=== PATIENT | female | born 1965 | race Caucasian/White ===

== ENCOUNTER 2020-01-25 17:43 | Emergency (ER) | payer OTHER, SELFPAY ==
--- NOTE | ~2020-01-25 | XR_ITS ---
EXAMINATION: XR abdomen/kub 1V INDICATION: Low back pain and hematuria TECHNIQUE: Supine view of the abdomen is obtained. COMPARISON: None FINDINGS: No suspected urinary tract calculi are identified. Punctate left upper quadrant calcificati ons are consistent with old granulomatous disease of the spleen. There is mild lumbar spondylosis. IMPRESSION: 1. No radiographic correlate for the patient's symptoms. Reviewed, dictated and finalized at location A.
--- NOTE | 2020-01-25 17:48 | ED.GENADULT ---
HPI - General Adult General Chief complaint: Urogenital-Female Stated complaint: kidney infection Time Seen by Provider: 01/25/20 17:56 Source: patient and RN notes reviewed Mode of arrival: ambulatory Limitations: no limitations History of Present Illness HPI narrative: 54-year-old female presents with concern for bilateral flank pain, nausea, urine frequency. Denies dysuria, urgency, fever. Denies abdominal pain, weakness in any extremity, loss of bowel or bladder function, perianal anesthesia. Reports pain is not exacerbated with bending or twisting. Reports some pain relief with lying flat. MD complaint: Flank pain Severity scale (1-10): 9 Related Data Allergies Allergy/AdvReac Type Severity Reaction Status Date / Time No Known Allergies Allergy Unknown Verified 05/18/19 15:20 Review of Systems Review of Systems: Narrative: CONSTITUTIONAL: Denies malaise, chills, sweats, or fever. CARDIOVASCULAR: Denies chest pain, palpitations, or edema. RESPIRATORY: Denies cough or dyspnea. GASTROINTESTINAL: Denies abdominal pain, vomiting, diarrhea. Reports nausea GENITOURINARY: Denies dysuria or hematuria. Reports flank pain, urine frequency MUSCULOSKELETAL: Reports flank pain denies myalgia. NEUROLOGIC: Denies numbness, weakness All systems reviewed & are unremarkable except as noted in HPI and below PMFSH Social History Social History (Updated 05/27/19 @ 17:19 by Patt Goodson) Smoking packs per day: 1 Smoking cigarettes per day: 20.0 Smoking status: Current every day smoker Tobacco type: cigarettes Second hand tobacco smoke exposure: Yes Alcohol intake: never Substance use: never Substance use type: does not use Gender identity (if verbalized by the patient): Female Comments At time of signature, agree with nursing past medical, surgical, social and family history. There is no relevant family history pertinent to the presenting complaint Exam Narrative: Exam Narrative: GENERAL: Well-appearing, well-nourished, and in no acute distress. HEAD: Normocephalic. EYES: PERRLA, conjunctivae clear. NECK: Supple. No lymphadenopathy CHEST: Clear to auscultation. No respiratory distress. HEART: Regular rate and rhythm. No murmur heard. Normal peripheral pulses. ABDOMEN: Soft, nontender upon palpation, nondistended, normal active bowel sounds, no palpable or pulsatile masses, no guarding. No CVA tenderness MUSCULOSKELETAL: Normal range of motion and strength in all extremities; 5/5 strength with hip flexion and extension, dorsiflexion and extension, knee flexion and extension, plantar flexion and extension. Normal sensation in dermatomal distributions with sensitivity to light touch and pain. No midline back tenderness to palpation. No paraspinal tenderness. Transfers from lying to sitting to standing. SKIN: Warm, dry, no rash. NEURO: Alert and oriented x3. PSYCH: Normal mood and affect Course Course Emergency Course: Discussed with patient possibility of transfer to emergency department for further evaluation and confirmation of nephrolithiasis. Patient reports that she will not go to the emergency room due to scare of coronavirus exposure. Discussed with patient treatment of potential nephrolithiasis and follow-up tomorrow with her primary care provider patient agrees to this plan and understands that she should go to the emergency room if her symptoms worsen or do not improve. Patient is aware of diagnosis, understands and agrees to treatment plan. Anticipatory guidance given. Patient agrees to follow-up as directed and is aware of reasons to seek care at the emergency department. Portions of this record may have been created with voice recognition software Vital Signs Vital signs: Vital Signs Temperature 99.4 F 01/25/20 17:53 Pulse Rate 90 01/25/20 17:53 Respiratory Rate 16 01/25/20 17:53 Blood Pressure 179/88 H 01/25/20 17:53 Pulse Oximetry 98 01/25/20 17:53 Temperature 99.4 F 01/25/20 1
[2020-01-25 17:53] VITALS: BP 179/88; PULSE 90; RESP 16; TEMP 37.4; O2SAT 98
== END 2020-01-25 18:37 | disposition home or self-care (01) ==
PROVIDERS: Emergency Provider Nurse Practitioner; PCP Family Medicine
DX: R10.9 Unspecified abdominal pain (principal); F17.210 Nicotine dependence, cigarettes, uncomplicated
CPT/HCPCS: 74018; 81003; 99213; G0463

== ENCOUNTER 2023-03-20 11:40 | Emergency (ER) | payer BC, SELFPAY ==
[2023-03-20 11:57] VITALS: BP 177/90; PULSE 88; RESP 16; TEMP 37.2; O2SAT 99
--- NOTE | 2023-03-20 12:56 | ED.GENADULT ---
HPI - General Adult General Chief complaint: Wound/Laceration Stated complaint: Left Side Face/Ear Pain Time Seen by Provider: 03/20/23 12:56 Source: patient, RN notes reviewed and old records reviewed Mode of arrival: ambulatory Limitations: no limitations History of Present Illness HPI narrative: 57-year-old female presents to the [facility] with complaints redness, inflammation and pain to the left outer ear, pre-auricular area states that she has been itching at it, states that she noticed the change on Sunday, 3 days ago. Has been applying warm compresses. Related Data Allergies Allergy/AdvReac Type Severity Reaction Status Date / Time No Known Allergies Allergy Unknown Verified 03/20/23 12:28 Review of Systems Review of Systems: All systems reviewed & are unremarkable except as noted in HPI and below Constitutional: Constitutional: Reports no additional constitutional complaints Eyes: Eyes: Reports no additional eye complaints ENT: Reports as per HPI Cardiovascular: Cardiovascular: Reports no additional cardiovascular complaints, Denies chest pain and Denies dyspnea Respiratory: Respiratory: Reports no additional respiratory complaints, Denies chest congestion, Denies cough and Denies dyspnea Gastrointestinal: Gastrointestinal: Reports no additional gastrointestinal complaints, Denies abdominal pain, Denies nausea and Denies vomiting Musculoskeletal: Musculoskeletal: Reports no additional musculoskeletal complaints Integumentary/Breasts: Skin/Breast: Reports as per HPI Neurologic: Reports system reviewed and no additional complaints, except as documented Psychiatric: Psychiatric: Reports no additional psychiatric complaints Allergic/Immunologic: Allergic/Immunologic: Reports no additional allergic/immunologic complaints [facility] Social History Social History Smoking packs per day: 1 Smoking cigarettes per day: 20.0 Years smoked: 30 Smoking pack-years: 30.00 Smoking status: Current every day smoker Tobacco type: cigarettes Second hand tobacco smoke exposure: Yes Alcohol intake: never Substance use: never Substance use type: does not use Living arrangements: with family Occupation/Education: occupation Gender identity (if verbalized by the patient): Female Sexual Orientation (if Verbalized by the Patient): Straight or Heterosexual Comments At the time of my signature, I reviewed and agree with the nursing past medical, surgical, social, and family history. There is no relevant family history pertinent to the patient complaint. Exam Const: General: cooperative, healthy appearing, no acute distress, well developed, alert, uncomfortable and well nourished Nutritional Appearance: well nourished Orientation/consciousness: patient oriented x3 Limitations: no limitations HENMT: Head: normal to inspection Ears: hearing grossly normal bilaterally and external ears normal Outer ear/TM images: 1. 3 x 3 cm erythema area pre-auricular. 1 cm x 1 cm fluctuant center. Warm to touch. Does not extend into the ear canal. Face/Nose/Sinus: Normal external nose present, Normal nares present, Normal nasal mucous membranes and turbinates present, normal facial exam and face symmetric Face and sinus: normal facial exam and face symmetric Mouth: Yes Normal oral and palatal mucosa present, Yes lip normal, Yes tongue normal and Yes moist mucous membranes Throat: posterior oropharynx normal and uvula midline Eyes: General: appearance normal, both eyes and all related structures Alignment and Position: alignment normal Periorbital: periorbital findings normal Pupils: Equal, round and reactive pupils present EOM: EOMs intact bilaterally Neck: Neck: normal visual inspection, full ROM, no lymphadenopathy and no meningeal signs Chest: Chest palpation & inspection: normal inspection of the chest Resp: Effort & Inspection: normal respiratory e
== END 2023-03-20 13:27 | disposition home or self-care (01) ==
PROVIDERS: Emergency Provider Nurse Practitioner; PCP Family Medicine
DX: L02.01 Cutaneous abscess of face (principal); L03.211 Cellulitis of face; F17.210 Nicotine dependence, cigarettes, uncomplicated
CPT/HCPCS: 87070; 87075; 87147; 87186; 87205; 99213; G0463

== ENCOUNTER 2023-04-16 13:34 | Outpatient (CLI) | payer BC, SELFPAY ==
--- NOTE | ~2023-04-16 | MR_ITS ---
EXAMINATION: MR ankle LT wo con DATE: 04/16/2023 14:49 INDICATION: Dorsal medial left ankle pain. Stress fracture. TECHNIQUE: Magnetic resonance imaging (MRI) of the left ankle was performed without intravenous contr ast. Sequences included sagittal, coronal, and axial proton-density weighted fast spin echo without a nd with fat saturation. COMPARISON: None. FINDINGS: Medial ankle ligaments: There is heterotopic ossification along the deep deltoid ligament consistent with sequela of chronic sprain. There is thickening and increased signal of the anterior superficial deltoid ligament with so me surrounding soft tissue edema consistent with additional age-indeterminate sprain/partial tear. Th e spring ligament complex appears to remain intact. Lateral ankle ligaments: The anterior and posterior inferior tibiofibular ligaments are normal. The anterior talofibular, calc aneofibular and posterior talofibular ligaments are normal. Tendons: Mild distal Achilles tendinosis without tear and tiny enthesopathic ossicle at the distalmost tendon. The peroneus longus and brevis tendons are normal. The tibialis anterior and extensor hallucis longu s and extensor digitorum longus tendons are normal. The tibialis posterior, flexor digitorum longus a nd flexor hallucis longus tendons are normal. Plantar fascia: Moderate-sized plantar calcaneal spur with mild tendinopathy/enthesopathy of the proximal central com ponent of the plantar aponeurosis. No associated marrow edema or surrounding soft tissue edema to sug gest acute plantar fasciitis. Bones/other: Nonspecific marrow edema without evident fracture line at the navicula, anterior process of the calca neus and anterior talus. Osteoarthritis with moderate medial side predominant nonuniform joint space narrowing at the talonavicular joint. The marrow edema in the anterior talus and calcaneus appears ce ntered about both sides of the middle facet of the subtalar joint where there is only mild osteoarthr itis. Additional mild osteoarthritis at a few of the tarsal metatarsal joints. No fracture or patholo gic marrow replacing process. There is also thickening of the capsule along the dorsal margin of the talonavicular ligament consistent with additional age-indeterminate partial tear. Fluid: Physiologic amount fluid within the joint space. There is more heterogeneous increased signal likely tenosynovitis along the dorsal and medial margin of the talonavicular joint. IMPRESSION: 1. Joint centered marrow edema at the talonavicular and medial articulation of the subtalar joint lik jomar related to osteoarthritis. No fracture identified. 2. Heterotopic obscuration of the deep deltoid ligament consistent with chronic sprain with thickenin g and increased signal and mild associated edema at the anterior superficial deltoid ligament and cristina ng the capsule at the dorsal talonavicular joint consistent with additional age-indeterminate sprains /partial tears. 3. 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 Reviewed, dictated and finalized at location A. IMPRESSION: 1. Joint centered marrow edema at the talonavicular and medial articulation of the subtalar joint likely related to osteoarthritis. No fracture identified. 2. Heterotopic obscuration of the deep deltoid ligament consistent with chronic sprain with thickening and increased signal and mild associated edema at the a nterior superficial deltoid ligament and along the capsule at the dorsal talona vicular joint consistent with additional age-indeterminate sprains/partial tear s. 3. 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
== END 2023-04-16 13:35 | disposition home or self-care (01) ==
PROVIDERS: PCP Family Medicine; Visit Provider Orthopaedic Surgery
DX: M84.30XA Stress fracture, unspecified site, initial encounter for fracture (principal); M77.32 Calcaneal spur, left foot; R60.9 Edema, unspecified
CPT/HCPCS: 73721

== ENCOUNTER 2023-08-01 10:20 | Emergency (ER) | payer OTHER, BC, SELFPAY ==
[2023-08-01 10:52] VITALS: BP 174/86; PULSE 87; RESP 16; TEMP 36.4; O2SAT 98
--- NOTE | 2023-08-01 11:13 | ED.GENADULT ---
HPI - General Adult General Chief complaint: Extremity Injury, Upper Stated complaint: left shoulder pain Source: patient, RN notes reviewed and old records reviewed Mode of arrival: ambulatory Limitations: no limitations History of Present Illness HPI narrative: 58-year-old female presents to [facility] with complaints of left shoulder pain this started this a.m. after patient twisted wrong. Patient denies actual injury, pt states twisted arm certain when started having pain. Patient has not taken anything for pain. MD complaint: shoulder pain Onset (ago): hour(s) (5-6) Location: upper extremity Radiation: non-radiation Severity: moderate Quality: sharp Pain Consistency: constant Relieving factors: none Exacerbating factors: movement Treatments prior to arrival: none Related Data Allergies Allergy/AdvReac Type Severity Reaction Status Date / Time No Known Allergies Allergy Unknown Verified 08/01/23 10:56 Review of Systems Constitutional: Constitutional: Reports no additional constitutional complaints, Denies body ache(s), Denies chills, Denies fatigue, Denies fever(s) and Denies headache(s) Eyes: Eyes: Reports no additional eye complaints and Denies blurry vision ENT: Reports system reviewed and no additional complaints, except as documented, Denies vertigo, Denies dizziness, Denies ear discharge, Denies otalgia, Denies facial pain, Denies headache(s), Denies nasal congestion, Denies nasal discharge, Denies sinus pain, Denies sinus pressure and Denies sore throat Cardiovascular: Cardiovascular: Reports no additional cardiovascular complaints, Denies chest pain, Denies chest pain at rest, Denies rapid heart rate and Denies dyspnea Respiratory: Respiratory: Reports no additional respiratory complaints, Denies chest congestion, Denies cough, Denies pain on inspiration, Denies pain with cough and Denies dyspnea Gastrointestinal: Gastrointestinal: Denies abdominal pain, Denies diarrhea, Denies nausea and Denies vomiting Musculoskeletal: Musculoskeletal: Reports arthralgias Comments: Left shoulder and upper arm pain Integumentary/Breasts: Skin/Breast: Denies rash Neurologic: Reports system reviewed and no additional complaints, except as documented, Denies vertigo, Denies dizziness and Denies headache(s) Endocrine: Endocrine: Denies fatigue PMFSH Past Medical History Medical History Arthritis of ankle or foot, degenerative HTN (hypertension) Pseudogout of ankle Stress fracture, left ankle, initial encounter for fracture Social History Social History Smoking packs per day: 1 Smoking cigarettes per day: 20.0 Years smoked: 30 Smoking pack-years: 30.00 Smoking status: Current every day smoker Tobacco type: cigarettes Second hand tobacco smoke exposure: Yes Alcohol intake: never Substance use: never Substance use type: does not use Living arrangements: with family Occupation/Education: occupation 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[employer] Gender identity (if verbalized by the patient): Female Sexual Orientation (if Verbalized by the Patient): Straight or Heterosexual Comments At the time of my signature, I reviewed and agree with the nursing past medical, surgical, social, and family history. There is no relevant family history pertinent to the patient complaint. Exam Const: General: cooperative, healthy appearing, no acute distress and well nourished Nutritional Appearance: well nourished Orientation/consciousness: patient oriented x3 Limitations: no limitations HENMT: Head: normal to inspection and normocephalic Ears: external ears normal and mastoids normal Face/Nose/Sinus: normal facial exam Face and sinus: normal facial exam Mouth: Yes Normal oral and palatal mucosa present, Yes oropharynx normal and Yes moist mucous membranes Throat:
== END 2023-08-01 11:23 | disposition home or self-care (01) ==
PROVIDERS: Emergency Provider Registered Nurse; PCP Family Medicine
DX: S46.912A Strain of unspecified muscle, fascia and tendon at shoulder and upper arm level, left arm, initial encounter (principal); X50.9XXA Other and unspecified overexertion or strenuous movements or postures, initial encounter; I10 Essential (primary) hypertension
CPT/HCPCS: 99213; G0463

== ENCOUNTER 2023-10-24 14:43 | Outpatient (CLI) | payer BC, SELFPAY ==
--- NOTE | ~2023-10-24 | XR_ITS ---
XR knee LT 3V 10/24/2023 14:58 Indication: Left knee pain Procedure: 3 views left knee Comparison: 12/28/2016 Findings: Mild osteoarthritis of the left knee. No fracture or traumatic malalignment. Small knee eff usion. No foreign bodies. Impression: 1: Mild osteoarthritis of the left knee. Reviewed, dictated and finalized at location B. Impression: 1: Mild osteoarthritis of the left knee.
== END 2023-10-24 14:44 ==
PROVIDERS: PCP Physician Assistant Medical; Visit Provider Physician Assistant Medical
DX: M25.462 Effusion, left knee (principal); M17.12 Unilateral primary osteoarthritis, left knee
CPT/HCPCS: 73562

== ENCOUNTER 2023-12-20 13:41 | Outpatient (CLI) | payer BC, SELFPAY ==
--- NOTE | ~2023-12-20 | MR_ITS ---
EXAMINATION: MR knee LT wo con DATE: 12/20/2023 14:07 INDICATION: Left knee pain TECHNIQUE: Magnetic resonance imaging (MRI) of the left knee was performed without intravenous contra st. Sequences included coronal PD-weighted FSE, coronal PD-weighted FS FSE, sagittal T2-weighted FSE , sagittal PD-weighted FS FSE and axial PD weighted fat saturated FSE. COMPARISON: None. FINDINGS: Medial compartment: Medial meniscus is normal. Articular cartilage is normal. Lateral compartment: Complex tear at the body and anterior horn of the lateral meniscus. There is cephalad displacement of a small meniscal flap at the junction of the body and anterior horn. Small partial-thickness chondra l fissure at the medial side of the lateral tibial plateau. Patellofemoral compartment: Deep chondral fissure extending transversely across the central aspect of the lateral patellar facet. Partial-thickness chondral ulceration at the central aspect of the patellar apical ridge and medial facet. Deep chondral ulceration with mild underlying cortical irregularity seen across the inferior a spect of the medial and lateral trochlea and intervening trochlear groove with mild subarticular olegario a-like signal change at the inferior aspect of the medial trochlea. Ligaments and tendons: Anterior and posterior cruciate ligaments are normal. The medial collateral ligament and fibular neymar ateral ligament complex are normal. Small enthesophyte at the tibial insertion of the otherwise alex l patellar tendon. Minimal distal quadriceps tendinosis. The visualized medial and lateral hamstring tendons as well as the iliotibial band are normal. Fluid: Moderate-sized left knee joint effusion. Suprapatellar plical band and mild scattered synovitis. Wm tional synovitis within a moderate-sized Banegas's cyst. No loose osteochondral bodies identified. Osseous/other: Bone alignment is normal. No fracture or pathologic marrow replacing process. IMPRESSION: 1. Complex lateral meniscal tear 2. Mild patellofemoral osteoarthritis with extensive moderate and high-grade chondromalacia and mild osteoporosis and lateral compartments small region of moderate grade chondromalacia. 2. Moderate-sized left knee joint effusion with moderate-sized Banegas's cyst. Reviewed, dictated and finalized at location A. IMPRESSION: 1. Complex lateral meniscal tear 2. Mild patellofemoral osteoarthritis with extensive moderate and high-grade ch ondromalacia and mild osteoporosis and lateral compartments small region of mod erate grade chondromalacia. 2. Moderate-sized left knee joint effusion with moderate-sized Banegas's cyst.
== END 2023-12-20 13:42 ==
LOC: MICIMG 13:42
PROVIDERS: PCP Family Medicine; Visit Provider Nurse Practitioner Family
DX: S83.272A Complex tear of lateral meniscus, current injury, left knee, initial encounter (principal); M17.12 Unilateral primary osteoarthritis, left knee; M25.462 Effusion, left knee; M71.22 Synovial cyst of popliteal space [Baker], left knee; M94.262 Chondromalacia, left knee; M81.0 Age-related osteoporosis without current pathological fracture; X58.XXXA Exposure to other specified factors, initial encounter
CPT/HCPCS: 73721

== ENCOUNTER 2023-12-20 15:22 | Outpatient (CLI) | payer BC, SELFPAY ==
[2023-12-20 16:40] LABS: Basophils Percent Auto 0.4 % (0.2-1.2); Eosinophils Absolute Auto 0.4 K/mm3 (0-0.3); Eosinophils Percent Auto 3.8 % (0-4.4); Hematocrit 43.4 % (37.0-47.0); Hemoglobin 14.1 g/dL (12.0-15.0); Immature Granulocyte Absolute 0.03 K/mm3 (0.00-0.031); Immature Granulocyte Percent A 0.3 % (0-0.5); Lymphocytes Absolute Auto 2.38 K/mm3 (0.9-3.2); Mean Corpuscular HGB Conc 32.5 g/dl (32-36); Mean Corpuscular Hemoglobin 31.3 pg (26-34); Mean Corpuscular Volume 96.2 fl (80-100); Mean Platelet Volume 9.3 fl (7.4-10.4); Monocytes Absolute Auto 0.8 K/mm3 (0.1-0.6); Monocytes Percent Auto 7.6 % (2.6-8.5); Neutrophils Absolute Auto 6.4 K/mm3 (1.3-6.7); Neutrophils Percent Auto 63.9 % (45.5-73.1); Platelet Count Result 227 k/mm3 (150-375); Red Blood Count 4.51 M/mm3 (4.2-5.4); Red Cell Distribution Width 13.2 % (11.5-14.5); White Blood Count 9.9 K/mm3 (4.5-10.0)
[2023-12-20 17:05] LABS: Alanine Aminotransferase 26 U/L (6-35); Albumin Level 4.4 g/dL (3.5-5.1); Alkaline Phosphatase 90 U/L (38-126); Anion Gap 9 mmol/L (4-12); Aspartate Amino Transferase 28 U/L (14-36); Bilirubin,Total 0.5 mg/dL (0.2-1.3); Blood Urea Nitrogen 19 mg/dL (7-17); CRP 1.2 mg/dL (<1.0); Calcium 8.7 mg/dL (8.4-10.2); Carbon Dioxide 26 mmol/L (22-30); Chloride 107 mmol/L (98-107); Estimated Glomerular Filt Rate > 60; Glucose 104 mg/dL (65-110); Potassium 3.9 mmol/L (3.4-5.0); Sodium 142 mmol/L (137-145)
[2023-12-20 18:03] LABS: Erythrocyte Sedimentation Rate 24 mm/hr (0-20)
[2023-12-24 11:38] LABS: ANA Pattern Nuclear, Speckled; Anti Nuclear Antibody Pattern Nuclear, Nucleolar
== END 2023-12-20 15:23 | disposition home or self-care (01) ==
PROVIDERS: PCP Family Medicine; Visit Provider Physician Assistant Medical
DX: I77.6 Arteritis, unspecified (principal); R21 Rash and other nonspecific skin eruption; R23.3 Spontaneous ecchymoses
CPT/HCPCS: 36415; 80053; 85025; 85652; 86038; 86039; 86140

== ENCOUNTER 2024-01-04 08:23 | Outpatient (CLI) | payer BC, SELFPAY ==
--- NOTE | 2024-01-04 08:31 | ECG_ITS ---
Test Date: 2024-01-04 08:45:58 Measurements Intervals [place] Rate: 64 P: 60 DE: 145 QRS: 32 QRSD: 106 T: -23 QT: 350 QTc: 362 Interpretive Statements SINUS RHYTHM WITH MARKED RHYTHM IRREGULARITY, POSSIBLE NON-CONDUCTED PAC, SA BLOCK, AV BLOCK, OR SINUS PAUSE NONSPECIFIC T-WAVE ABNORMALITY- ANTEROLATERAL LEADS BASELINE ARTIFACT- I, II, III, AVR, AVL, AVF, V1-V6 ABNORMAL ECG No previous ECG available for comparison Electronically Signed On 01-04-2024 08:54:31 CDT by Donnell Oviedo D.O.
== END 2024-01-04 08:24 | disposition home or self-care (01) ==
LOC: ANHSURGERY 08:26
PROVIDERS: PCP Family Medicine; Visit Provider Orthopaedic Surgery
DX: I10 Essential (primary) hypertension (principal); Z01.818 Encounter for other preprocedural examination; R94.31 Abnormal electrocardiogram [ECG] [EKG]
CPT/HCPCS: 93005

== ENCOUNTER 2024-01-17 01:09 | Day surgery (SDC) | payer BC, SELFPAY ==
[2024-01-02 09:31] VITALS: BMI 30.7
--- NOTE | 2024-01-02 09:32 | PC.NURSE ---
Report to the Outpatient Waiting Room, entrance under the green pavilion located off [facility], at time _0930_ on date _[id number]_. Planned Procedure Time: _1130_. Time changes happen often and if your time is changed the preop area will call you the afternoon before. - You and your visitor will be asked to self-screen and do not enter if you have any COVID symptoms. - A mask is optional within the hospital at this time. Patients may have clear liquids (water, carbonated beverages, clear teas, apple juice) until 3 hours prior to surgery with a maximum of 20 ounces. - No food from midnight until time of surgery Take the following medications with a SIP of water the morning of surgery: ___Amlodipine DO NOT STOP ANY OF YOUR OTHER PRESCRIPTION MEDICATIONS PRIOR TO SURGERY ?EXCEPT THE FOLLOWING Medications to discontinue per physician Meloxicam Date to take last ogvh___[id number] Please no make-up, nail upper sorbian, hairspray, perfume, deodorant, or body powder the day of surgery. No jewelry (including any body piercings) or valuables the day of surgery, leave them at home. Please take a shower or bath the night before, or the morning of, surgery with an antibacterial soap. Wear comfortable, loose fitting clothing. - Jewelry must be removed prior to entering the operating room. Rings and piercings that are not removed may be cut off. - The hospital will not accept responsibility for valuables. - Please leave all valuables, including medications, at home the day of surgery. If you are going home after surgery, a licensed boat driver must drive you home. - NO public transportation without another adult if you receive anesthesia. - We recommend that an adult stay with you for 24 hours following discharge. - We also recommend that you do not drive, make important decision, drink alcoholic beverages, or take any drugs that were not prescribed by your health care provider for at least 24 hours after your discharge time. Follow any additional instructions given to you from your surgeon. If you or anyone in your household have experienced Covid symptoms in the past week, please notify your surgeon or the nurse liaison at the phone number below for possible testing. Telephone instructions given to __[email or web address]____and asked if any additional questions and then verbalized understanding. Patient advised to call surgeon office or pre surgery nurse liaison [phone] if any additional questions.
--- NOTE | 2024-01-09 15:36 | P.PNAN_ITS ---
Anes - Initial Pre Proc Eval Procedure: Operation Date: 01/10/24 11:30 Proposed Procedures p Left Knee Arthroscopy, Debride Meniscus, Chondroplasty, Proceed As Indicated - Jerman Gibson MD Date/Time: 01/09/24 15:36 Surgeon: Jerman Gibson MD Pre Op Diagnosis: left knee pain,lateral meniscus tear,chondromylaci Patient Data Age: 58 Gender: F Height: 1.7 m Weight: 89 kg Allergies Allergy/AdvReac Type Severity Reaction Status Date / Time No Known Allergies Allergy Unknown Verified 01/07/24 14:17 Home Medications Medication Instructions Recorded Confirmed Type valsartan 160 mg tablet 160 mg PO DAILY #90 tabs 05/21/23 01/07/24 Rx amlodipine 5 mg tablet 5 mg PO DAILY #90 tabs 09/27/23 01/07/24 Rx meloxicam 7.5 mg tablet 7.5 mg PO DAILY #30 tabs 12/10/23 01/07/24 Rx aspirin 81 mg tablet,delayed 81 mg PO DAILY 01/02/24 01/07/24 History release Results Review: All pre-operative results and documents have been reviewed as part of the pre- operative evaluation. [facility] Past Medical History Medical History Arthritis of ankle or foot, degenerative Chondromalacia, left knee Degenerative joint disease of knee Effusion of knee joint HTN (hypertension) Lateral meniscus tear Left knee pain Pseudogout of ankle Stress fracture, left ankle, initial encounter for fracture Surgical History Surgical History (Updated 01/09/24 @ 15:37 by Keith Borden DO) History of tubal ligation Social History Social History Smoking packs per day: 1 Smoking cigarettes per day: 20.0 Years smoked: 30 Smoking pack-years: 30.00 Smoking status: Current every day smoker Tobacco type: e-cigarettes/vaping Second hand tobacco smoke exposure: Yes Alcohol intake: never Substance use: never Substance use type: does not use Do You Feel Safe in your Home?: Yes Lack of Transportation: No Lack of Food: Never True Concerned About Future Housing: No Difficulty Paying Gas/Electric Bills: No Difficulty Paying for Meds: No Currently Unemployed: No Education: High School Diploma/GED Difficulty w/ Childcare or Family Care: No Living arrangements: with family Occupation/Education: occupation 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[employer] Gender identity (if verbalized by the patient): Female Sexual Orientation (if Verbalized by the Patient): Straight or Heterosexual Spiritual care concerns: No Anes - Eval Final PreProcedure Day of Procedure 01/09/24 15:36 Results Review: All pre-operative results and documents have been reviewed as part of the pre- operative evaluation. Informed Consent: The patient's anesthetic plan and its attendant risks and benefits were discussed with the patient/family/POA. Questions were solicited and answers provided to the satisfaction of the patient/family/POA.
--- NOTE | 2024-01-10 15:34 | PC.NURSE ---
Report to the Outpatient Waiting Room, entrance under the green pavilion located off [facility], at time _1000_ on date _[id number]_. Planned Procedure Time: _1200_. Time changes happen often and if your time is changed the preop area will call you the afternoon before. - You and your visitor will be asked to self-screen and do not enter if you have any COVID symptoms. - A mask is optional within the hospital at this time. Patients may have clear liquids (water, carbonated beverages, clear teas, apple juice) until 3 hours prior to surgery with a maximum of 20 ounces. - No food from midnight until time of surgery Take the following medications with a SIP of water the morning of surgery: ___Amlodipiine DO NOT STOP ANY OF YOUR OTHER PRESCRIPTION MEDICATIONS PRIOR TO SURGERY ?EXCEPT THE FOLLOWING Medications to discontinue per physician Meloxicam Date to take last dose___Stop today. Please no make-up, nail stateless, hairspray, perfume, deodorant, or body powder the day of surgery. No jewelry (including any body piercings) or valuables the day of surgery, leave them at home. Please take a shower or bath the night before, or the morning of, surgery with an antibacterial soap. Wear comfortable, loose fitting clothing. - Jewelry must be removed prior to entering the operating room. Rings and piercings that are not removed may be cut off. - The hospital will not accept responsibility for valuables. - Please leave all valuables, including medications, at home the day of surgery. If you are going home after surgery, a licensed entry driver operator must drive you home. - NO public transportation without another adult if you receive anesthesia. - We recommend that an adult stay with you for 24 hours following discharge. - We also recommend that you do not drive, make important decision, drink alcoholic beverages, or take any drugs that were not prescribed by your health care provider for at least 24 hours after your discharge time. Follow any additional instructions given to you from your surgeon. If you or anyone in your household have experienced Covid symptoms in the past week, please notify your surgeon or the nurse liaison at the phone number below for possible testing. Telephone instructions given to __Karon___and asked if any additional questions and then verbalized understanding. Patient advised to call surgeon office or pre surgery nurse liaison [phone] if any additional questions.
[2024-01-17] VITALS (9 sets, daily range): BP systolic 105–131; BP diastolic 63–94; PULSE 70–73; RESP 12–20; TEMP 36.3–36.6; O2SAT 95–100
[2024-01-17] MEDS: ACETAMINOPHEN 500 MG TABLET 1000 MG PO (11:02)
[2024-01-17] MEDS: LACTATED RINGERS 1,000 ML 30 ML IV CONT (11:05)
[2024-01-17] MEDS: KETOROLAC 15 MG/ML VIAL (*BKC) IV PUSH (11:08)
--- NOTE | 2024-01-17 11:18 | WPDANESEPPF ---
Anes - Initial Pre Proc Eval Procedure: Operation Date: 01/17/24 12:00 Proposed Procedures p Left Knee Arthroscopy, Debride Meniscus, Chondroplasty, Proceed As Indicated - Jerman Gibson MD Date/Time: 01/17/24 11:18 Surgeon: Jerman Gibson MD Pre Op Diagnosis: left knee pain,lateral meniscus tear,chondromylaci Patient Data Age: 58 Gender: F Height: 1.7 m Weight: 89 kg Allergies Allergy/AdvReac Type Severity Reaction Status Date / Time No Known Allergies Allergy Unknown Verified 01/17/24 10:41 Home Medications Medication Instructions Recorded Confirmed Type valsartan 160 mg tablet 160 mg PO DAILY #90 tabs 05/21/23 01/17/24 Rx amlodipine 5 mg tablet 5 mg PO DAILY #90 tabs 09/27/23 01/17/24 Rx meloxicam 7.5 mg tablet 7.5 mg PO DAILY #30 tabs 12/10/23 01/17/24 Rx aspirin 81 mg tablet,delayed 81 mg PO DAILY 01/02/24 01/17/24 History release Patient hx anesthesia problems: none Family hx anesthesia problems: none Results Review: All pre-operative results and documents have been reviewed as part of the pre-operative evaluation. [facility] Past Medical History Medical History Arthritis of ankle or foot, degenerative Chondromalacia, left knee Degenerative joint disease of knee Effusion of knee joint HTN (hypertension) Lateral meniscus tear Left knee pain Pseudogout of ankle Stress fracture, left ankle, initial encounter for fracture Surgical History Surgical History (Updated 01/09/24 @ 15:37 by Keith Borden DO) History of tubal ligation Social History Social History Smoking packs per day: 1 Smoking cigarettes per day: 20.0 Years smoked: 30 Smoking pack-years: 30.00 Smoking status: Current every day smoker Tobacco type: e-cigarettes/vaping Second hand tobacco smoke exposure: Yes Alcohol intake: never Substance use: never Substance use type: does not use Do You Feel Safe in your Home?: Yes Lack of Transportation: No Lack of Food: Never True Concerned About Future Housing: No Difficulty Paying Gas/Electric Bills: No Difficulty Paying for Meds: No Currently Unemployed: No Education: High School Diploma/GED Difficulty w/ Childcare or Family Care: No Living arrangements: with family Occupation/Education: occupation 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[employer] Gender identity (if verbalized by the patient): Female Sexual Orientation (if Verbalized by the Patient): Straight or Heterosexual Spiritual care concerns: No Anes - Eval Final PreProcedure Day of Procedure 01/17/24 11:18 Patient weight: obese Heart: regular rate and rhythm Lungs: clear to auscultation Airway: Mallampati scale class II Neurological: alert and oriented Last oral intake: >/= 8 hours ASA classification: III Emergent: no Anesthetic plan: proceed Anesthesia type and monitoring: general LMA and standard monitoring Results Review: All pre-operative results and documents have been reviewed as part of the pre-operative evaluation. Informed Consent: The patient's anesthetic plan and its attendant risks and benefits were discussed with the patient/family/POA. Questions were solicited and answers provided to the satisfaction of the patient/family/POA.
--- NOTE | 2024-01-17 11:20 | WPDHPUPDATE1 ---
History and Physical Update Update Date/Time: 01/17/24 11:20 History and Physical has been reviewed, including an updated exam of the patient. There are NO changes in the patient's condition. Risks, benefits, and alternatives have been discussed and questions answered. Patient agrees to proceed with procedure.
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
[2024-01-17] MEDS: ceFAZolin 2 GM/D5W 50 ML 2 GM/50 ML BAG IVPB (12:02)
[2024-01-17] MEDS: BUPivacaine HCL 0.25% PF 10 ML VIAL INFILTRATE (12:25)
[2024-01-17] MEDS: BUPIVACAINE/EPINEPHRINE 0.5% 10 ML VIAL INFILTRATE (12:26)
--- NOTE | 2024-01-17 13:07 | W.PM.PROC2 ---
Procedure Note - Detailed Date of Procedure 01/17/24 Pre-op Diagnosis left knee pain,lateral meniscus tear,chondromylaci Post-op Diagnosis Same Procedure Performed Left knee arthroscopy with partial lateral meniscectomy and patellofemoral chondroplasty Surgeon Jerman Gibson MD Systems Integration Advisor scrub nurse Anesthesia General Indications 58-year-old woman with left knee pain and mechanical symptoms. MRI shows lateral meniscus tear and mild chondromalacia. Failed conservative treatment with injections and therapy. Presents for operative treatment. Findings Left knee large complex tear of the body of the lateral meniscus with displacement into the knee joint. grade 1 chondromalacia lateral femoral condyle. Grade 2 chondromalacia patellofemoral articulation. Hypertrophic fat pad. ACL and PCL intact. medial compartment and medial meniscus intact. Description of Procedure Informed consent given by patient. Operative extremity marked in preoperative holding area. Patient received intravenous antibiotics. Patient brought to operating room and underwent general anesthetic by anesthesia team. Positioned supine on operating room table. Left leg placed into a posterior thigh leg quiles. Foot of the table dropped to 90? and right leg padded out of the field. Time-out performed confirming patient, site of surgery and plan. Left knee prepped and draped in usual sterile surgical fashion using ChloraPrep skin solution. Standard arthroscopic portals made by using a 11 blade knife for the anterior lateral portal 1st. Capsule penetrated bluntly. Camera and inflow started. The Above operative findings noted. Intra-articular visualization used to position the anterior medial portal using 22 gauge spinal needle. A 11 blade knife used for the skin and blunt penetration of the capsule. 4.7 millimeter arthroscopic shaver introduced and partial lateral meniscectomy of the loose and torn portion performed. Edge of meniscus completed with arthroscopic Wand. Arthroscopic Wand used to perform chondroplasty of the patellofemoral articulation and the lateral femoral condyle. Shaver reintroduced and a synovectomy performed of the anterior fat pad and extensive synovium as well as medial and lateral plica. Bleeding points coagulated with Wand. Knee inspected, no loose pieces noted. 1 liter of irrigant infused and suction out. Arthroscopic cannulas removed. Skin closed with 4 nylon interrupted suture. Local anesthetic with 0.25% Marcaine. Sterile dressing applied. Patient awoken from anesthesia, extubated and taken to recovery room in stable condition. All sponge needle and instrument counts correct at the end of the case. Estimated Blood Loss 5 Tourniquet Time Total Tourniquet Time: 0 Drains No Packing No Complications None Condition Stable Disposition PACU [facility] Billing Surgery - Charge Forward: Surgery Billing ([id number])
[2024-01-17] MEDS: fentaNYL CITRATE INJ (*CRX) 100 MCG/2 ML VIAL 25 MCG IV PUSH ×4 (13:14→13:27)
[2024-01-17] MEDS: oxyCODONE HCL (*CRX) 5 MG TAB IR PO (14:09)
== END 2024-01-17 14:35 | disposition home or self-care (01) ==
PROVIDERS: PCP Family Medicine; Visit Provider Orthopaedic Surgery
PROC: (CPT 29870; principal; 2024-01-17 12:00)
DX: S83.272A Complex tear of lateral meniscus, current injury, left knee, initial encounter (principal); M94.262 Chondromalacia, left knee; M25.562 Pain in left knee; I10 Essential (primary) hypertension
CPT/HCPCS: 29881; 93005; A9270; J0690; J1100; J1885; J2250; J2371; J2405; J2704; J3010; J7120

== ENCOUNTER 2024-08-14 09:02 | Outpatient (CLI) | payer BC, SELFPAY ==
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
--- OUTSIDE RECORDS SUMMARY | 2024-08-14 09:16 | XMS_ITS | Data Portability ---
Author Organization [place] [facility], Main Office Address [address] [place] [address] Care Team Providers Care Test Engine Evaluator Name Role Phone VISHAL BANKS Primary Care Provider VISHAL BANKS Referring Provider Assessment Encounter Date Assessment Date Assessment LastModified by Organization Details LastModified Time 08/31/2022 08/31/2022 Patient has foot pain left. She is tender over the base of the 2nd has pain to palpation manipulation. Neurologically she is intact strength is good reflexes symmetric sensation normal. Based on this I recommended an x-ray again in [address] in a stiff-soled shoe and treat her as if she did have a stress fracture which I think she may have. I told her she can work as long she can walk on her heel if he gets to topple up to take her off work. Her prescription drug management will try Voltaren for pain and inflammation I told her I really do not want to give her narcotics for this. [email or web address] Not available 08/31/2022 14:50:58 09/14/2022 09/14/2022 Patient returns foot pain (the pain is getting better slowly but surely she remains tender over the dorsum of the foot particularly the base of the 2nd metatarsal. Her x-rays look normal I think at this point safe to take out the boot and get her moving slowly if he gets worse or changes she can call overall she is following a reasonable course and seems to be doing fine. [email or web address] Not available 09/14/2022 14:33:24 Plan of Treatment Reminders Order Date Submit Date Provider Last Modified By Organization Details Last Modified Time Details Appointments None recorded. Lab None recorded. Referral None recorded. Procedures None recorded. Surgeries None recorded. Imaging XR, foot, 3 or more view 2022 023 [email or web address] [facility] [place], [address], [address], 3 15:15:13 XR, foot, 3 or more view 2022 023 [email or web address] [facility] [place], [address], [address], 3 15:07:27 Medication Orders diclofenac sodium 75 mg tablet,tevin yed release 2022 023 sergo [facility]ler [facility] [place], [address], 14:48:47 Patient TargetsNo targets recorded. Patient InstructionsNo instructions recorded. Reason for Referral None Reported. Results Created Date Observation Date Name Description Value Unit Range Abnormal Flag Note LastModifiedBy Organization Detail LastModifiedTime 09/01/19 23 XR, foot, 3 or more view No observ ation record ed. [email or web address] [facility] [place] [address], [address], 08/31/2022 14:49:43 09/15/19 23 XR, foot, 3 or more view No observ ation record ed. [email or web address] [facility] [place] [address], [address], 09/14/2022 14:32:09 Result Notes None recorded. Problems Name Problem SNOMED Code Status Onset Date Resolution Date Notes Provider Name and Address Organization Details Recorded Time Stress fracture 126517700 Active Not Available [facility] 3 10:47:03 Sprain of ankle 86982232 Active Not Available [facility] 3 10:47:03 Pain in limb 95013387 Active Not Available [facility] 3 10:47:03 Closed fracture of cuboid bone of foot 1932935 Active Not Available [facility] 10:47:03 Pain in left foot 44631220987525 7 Active 2022 [facility] 14:05:34 Problem Notes None recorded. Procedures Surgical History Date Name Laterality Status Provider Name and Address Organization Details Recorded Time procedure on ovary completed TELMA Rodas [employer] 08/31/2022 14:05:19 Imaging Results Imaging Date Name Status LastModified by Organiz ation Details LastModified Time 08/31/2022 XR, foot, 3 or more view completed [address] [facility] [place] [address], [place], [address], 08/31/2022 14:49:43 09/14/2022 XR, foot, 3 or more view completed [facility] [place] [address], [place], [address], 09/14/2022 14:32:09 Procedure Notes None recorded. Medical Equipment None Reported. Allergies No known drug allergies Medications Name Sig Start Date Stop Date Status Note LastModified by Organization Details LastModified Time hydrocodone 5 mg-acetamin ophen 325 mg tablet 08/31 completed Not Available Not Available Not Available topiramate 25 mg tablet 08/31 completed Not Available Not Available Not Available ciprofloxac in 500 mg tablet 08/31 completed Not Available Not Available Not Available tramadol 50 mg tablet 08/31 completed Not Available Not Available Not Available butalbital- acetaminoph en-caffeine 50 mg-325 mg-40 mg tablet 08/31 completed Not Available Not Available Not Available nystatin 100,000 unit/gram topical cream 08/31 completed Not Available Not Available Not Available diclofenac sodium 75 mg tablet,tevin yed release Take 1 tablet twice a day by oral route. 2022 active Not Available Not Available Not Avai lable codeine 10 mg-guaifene sin 100 mg/5 mL oral liquid TAKE 5 ML BY MOUTH EVERY 4 TO 6 HOURS NEEDED FOR COUGH 08/31 completed Not Available Not Available Not Available ibuprofen 600 mg tablet 08/31 completed Not Available Not Available Not Available methylpredn isolone 4 mg tablets in a dose pack USE DIRECTED 08/31 completed Not Available Not Available Not Available Vitals Date Recorded Body height Body mass index (BMI) Body weight Provider Name and Address Organization Details Last Updated DateTime 09/14/2022 172.72 cm 29.6 kg/m2 86963.51 g TELMA Rodas [employer] 09/14/2022 13:55:38 Social History Question Answer Notes LastModified by Organizat ion Details LastModified Time Tobacco Smoking Status Never Smoker TELMA Rodas [employer] 08/31/2022 14:05:10 Do You Or Have You Ever Used E-cigarettes Or Vape? Current User Of Electronic Cigarettes Information not available 08/31/2022 Do You Or Have You Ever Used Any Other Forms Of Tobacco Or Nicotine? Yes Information not available 08/31/2022 Sex: Unknown Functional Status None recorded. Mental Status None recorded. Family History Nothing Reported. Medical History No medical history recorded. Gynecological HistoryNo gynecological history recorded. Obstetrics History GPAL:G 0 P 0 0 0 0 Past Encounters Encounter ID Performer Location Encounter Start Date Encounter Closed Date Diagnosis/Indication Diagnosis SNOMED-CT Code Diagnosis ICD10 Code Diagnosis Note [id number] Marcell Don MD [facility] [place] [address] [place] [address] 08/31/2022 13:50:59 08/31/2022 15:07:27 Pain in left foot 5060746330 94397 M79.672 [id number] Marcell Don MD [facility] [place] [address] [place] [address] 09/14/2022 13:53:00 09/14/2022 15:15:13 Pain in left foot 6525139085 26779 M79.672 Health Concerns Section Related Observation LastModified by Organization Detai ls LastModified Time None Recorded Concern Status LastModified by Organization Details LastModified Time None Recorded Advance Directives Directive None Recorded Payers Encounter Date Sequence Insurance Name Policy Number Policy Padgett Covered Member ID Padgett Member ID Guarantor Name 08/31/2022 1 [place] [employer] [place] [id number] 1 Kimberley Mccann [id number] Kimberley Mccann 09/14/2022 1 [place] [id number] 1 Kimberley Mccann [id number] Kimberley Mccann Notes Date Note Type Note Provider Name and Address Organization Details Recorded Time 08/31/2022 text/html Patient presents foot pain left. She is acutely tender over the space of the 2nd metatarsal. She does not recall any specific antecedent trauma but is really quite tender and has pain walking around. Marcell Don MD [address], [place], [address], [employer] 08/31/2022 14:51:35 09/14/2022 text/html Patient returns foot pain left. Pain is over the dorsum of the foot particularly the 2nd metatarsal base area neurologically she is intact very little swelling. Marcell Don MD [address], [place], [address], [employer] 09/14/2022 14:34:12 OBGyn Episode No OBEpisode recorded.
--- NOTE | 2024-08-14 16:04 | WPDPFTINT ---
PFT Procedure Performed PFT Procedure Performed Spirometry with Pre/Post Bronchodilator Plethysmography (Lung Vol) Diffusing Cap (DLCO) Flow Vol Loop PFT Interpretation This is a pulmonary function test with pre and post-bronchodilator spirometry, plethysmography and diffusing capacity. The test was performed and results interpreted in accordance with the 2019 and 2005 ATS/ERS Task Force guidelines respectively using the Global Lung Function Initiative-2012 reference equations. Patient demonstrated good effort and cooperation. Reproducibility criteria were met. The quality of the pre bronchodilator spirometry maneuver was Grade A and post bronchodilator spirometry maneuver was Grade A. Findings: Spirometry: The contour the inspiratory and expiratory flow tracing are normal. The pre bronchodilator FVC is 2.71 L, 91% predicted. The pre bronchodilator FEV1 is 1.95 L, 83% predicted. The pre bronchodilator FEV1: FVC ratio 72%. The post bronchodilator FVC is 2.66 L, representing a 2% decrease. The post bronchodilator FEV1 is 2.00 L, representing a 3% decrease. The post bronchodilator FEV1: FVC ratio 75%. Plethysmography: The total lung capacity is 5.49 L, 114% predicted. The functional residual capacity is 3.15 L, 103% predicted. The residual volume is 2.73 L, 136% predicted. Diffusing capacity: The diffusing capacity unadjusted for hemoglobin and carboxyhemoglobin is 16.9, 74% predicted. The diffusing capacity adjusted for alveolar volume is 3.74, 87% predicted. Impression: The spirometry is normal without evidence of an obstructive abnormality. There is no significant improvement after inhaling a single dose of albuterol. The lung volumes are normal. The diffusing capacity is normal. There are no prior studies for comparison
== END 2024-08-14 09:03 | disposition home or self-care (01) ==
PROVIDERS: PCP Family Medicine; Visit Provider Family Medicine
DX: R05.9 Cough, unspecified (principal); F17.200 Nicotine dependence, unspecified, uncomplicated
CPT/HCPCS: 94060; 94726; 94729